=== PATIENT | male | born 1960 | race American Indian/Alaskan Native ===

== ENCOUNTER 2020-01-25 20:36 | Emergency (ER) | payer MEDICAID ==
--- NOTE | 2020-01-25 20:40 | Emergency Department Report ---
Blank Doc - Documentation Documentation: 59-year-old male that presents with chest pain and SOB. This initial assessment/diagnostic orders/clinical plan/treatment(s) is/are subject to change based on patient's health status, clinical progression and re- assessment by fellow clinical providers in the ED. Further treatment and workup at subsequent clinical providers discretion. Patient/guardians urged not to elope from the ED as their condition may be serious if not clinically assessed and managed. Initial orders include: 1- Patient sent to MAIN ED for further evaluation and treatment 2- cardiac workup
[2020-01-26] MEDS ORDERED: IBUPROFEN 600 MG TAB PO ONE (00:11)
[2020-01-26] MEDS ORDERED: HYDROcodone/ACETAMINOPHEN 5-325 MG TAB PO ONE (00:12)
--- NOTE | 2020-01-26 00:14 | Emergency Department Report ---
ED Animal Bite HPI - General Chief Complaint: Animal Bite Stated Complaint: SPIDER BITE Time Seen by Provider: 01/25/20 20:38 Source: EMS Mode of arrival: Ambulatory Limitations: No Limitations - History of Present Illness Initial Comments: 59-year-old -[place] male presents to the emergency room for possible spider bite to his left shoulder and neck today. Patient states that the insect bit him 3 times on his neck and shoulder. Patient reports he is up-to-date on his tetanus as he last had it in 2017. Patient states that his burning and tingling. Patient has not taken anything for pain medicine. Patient denies any chest pain shortness of breathing fever or chills. Patient states that he did take his blood pressure medicine but is not able to tell me what medicine he takes. Complaint: other (Insect bite) -: This afternoon Right: Shoulder Animal: other (Insect bite) Mechanism: bite Severity scale (0 -10): 8 - Related Data Previous Rx's Medication Instructions Recorded Last Taken Type Doxycycline Hyclate [Doxycycline 100 mg PO Q12HR 10 Days #20 tab 01/26/20 Unknown Rx Hyclate TAB] traMADoL [Ultram 50 MG tab] 50 mg PO Q6HR PRN #12 tablet 01/26/20 Unknown Rx Allergies Allergy/AdvReac Type Severity Reaction Status Date / Time tuberculin,PPD,multi-puncture AdvReac Anaphylaxis Verified 01/25/20 20:55 ED Review of Systems ROS: Stated complaint: SPIDER BITE Other details as noted in HPI Comment: All other systems reviewed and negative ED Past Medical Hx - Past Medical History Hx Hypertension: Yes Hx Diabetes: Yes Hx Psychiatric Treatment: Yes (PTSD) - Social History Smoking Status: Current Every Day Smoker Substance Use Type: Alcohol - Medications Home Medications: Home Medications Medication Instructions Recorded Confirmed Last Taken Type Doxycycline Hyclate [Doxycycline 100 mg PO Q12HR 10 Days #20 tab 01/26/20 Unknown Rx Hyclate TAB] traMADoL [Ultram 50 MG tab] 50 mg PO Q6HR PRN #12 tablet 01/26/20 Unknown Rx ED Physical Exam - General Limitations: No Limitations General appearance: alert, in no apparent distress - Head Head exam: Present: atraumatic, normocephalic - Eye Eye exam: Present: normal appearance - ENT ENT exam: Present: mucous membranes moist - Back Exam Back exam: Present: normal inspection, full ROM - Neurological Exam Neurological exam: Present: alert, oriented X3, normal gait - Psychiatric Psychiatric exam: Present: normal affect, normal mood - Skin Skin exam: Present: erythema - Expanded Skin Exam Expanded Distribution of rash: neck Description of rash: Present: tenderness, erythematous, swelling ED Course Vital Signs 01/25/20 20:58 Temperature 98.1 F Pulse Rate 82 Respiratory 18 Rate Blood Pressure 163/110 O2 Sat by Pulse 98 Oximetry Critical care attestation.: If time is entered above; I have spent that time in minutes in the direct care of this critically ill patient, excluding procedure time. ED Disposition Clinical Impression: Cellulitis, neck Disposition: DC-01 TO HOME OR SELFCARE Is pt being admited?: No Does the pt Need Aspirin: No Condition: Stable Additional Instructions: Complete antibiotics as prescribed. Take pain medication as needed do not operate heavy machinery while taking pain medication. You can take ibuprofen or Tylenol as well. Prescriptions: Doxycycline Hyclate [Doxycycline Hyclate TAB] 100 mg PO Q12HR 10 Days #20 tab traMADoL [Ultram 50 MG tab] 50 mg PO Q6HR PRN #12 tablet PRN Reason: Pain Referrals: PRIMARY CARE, [Primary Care Provider] - 3-5 Days Forms: Work/School Release Form(ED) ED Medical Decision Making - Medical Decision Making 59-year-old -[place] male presents to the emergency room for possible spider bite to his left shoulder and neck today. Patient states that the insect bit him 3 times on his neck and shoulder. Patient reports he is up-to-date on his tetanus as he last had it in 2017. Patient states that his burning and tingling. Patient has not taken anything for pain medicine. Patient denies any chest pain shortness of breathing fever or chills. Patient states that he did take his blood pressure medicine but is not able to tell me what medicine he takes. Patient is given ibuprofen and [place] for pain management. Patient be discharged home on doxycycline for 10 days and can take [id number] ibuprofen or Tylenol. Instructed patient to follow-up with a clinical interviewer or the wound gets worse to return back to the emergency room for further evaluation.
[2020-01-26 02:51] VITALS: BP 185/115
== END 2020-01-26 00:35 | disposition home or self-care (01) ==
LOC: ED 20:36
DX: L03.221 Cellulitis of neck (principal); F17.200 Nicotine dependence, unspecified, uncomplicated; I10 Essential (primary) hypertension; F43.11 Post-traumatic stress disorder, acute; E11.9 Type 2 diabetes mellitus without complications; Z88.8 Allergy status to other drugs, medicaments and biological substances
CPT/HCPCS: 99283